=== PATIENT | female | born 1980 | race Caucasian/White ===

== ENCOUNTER 2018-10-23 07:40 | Day surgery (SDC) | payer BC ==
[~2018-10-23 07:40] MED LIST: Bupivacaine 0.25% 10 ML SDV ONE; Methylene Blue 50 MG/10 ML Ampule ONE
[2018-10-23] MEDS ORDERED: Midazolam 1 MG/ML 2 ML SDV ONE (07:58)
[2018-10-23] MEDS ORDERED: fentaNYL 100 MCG/2 ML SDV ONE (07:58)
[2018-10-23] MEDS ORDERED: Propofol 200 MG/20 ML SDV ONE (07:59)
[2018-10-23] MEDS ORDERED: Lidocaine 2% 5 ML SDV ONE (07:59)
[2018-10-23] MEDS ORDERED: Rocuronium 100 MG/10 ML Syringe ONE (07:59)
[2018-10-23] MEDS ORDERED: Dexamethasone 4 MG/ML 5 ML MDV ONE (08:00)
[2018-10-23] MEDS ORDERED: Glycopyrrolate 0.2 MG/ML SDV ONE ×2 (08:00)
[2018-10-23] MEDS ORDERED: Ondansetron 4 MG/2 ML SDV ONE ×2 (08:00)
[2018-10-23] MEDS: Lactated Ringers 1,000 ML IV SCH ×2 (08:20→18:20)
[2018-10-23] MEDS ORDERED: Scopolamine 1.5 MG Transdermal Patch TRDERM PRN (08:32)
--- NOTE | 2018-10-23 08:32 | PCM.PREANE ---
Preanesthetic Assessment - Anesthesia/Transfusion/Family Hx Anesthesia History: Prior Anesthesia Without Reaction Family History of Anesthesia Reaction: No Transfusion History: No Prior Transfusion(s) - Review of Systems General: No Symptoms Pulmonary: No Symptoms Cardiovascular: No Symptoms Gastrointestinal: No Symptoms Neurological: No Symptoms Other: Reports: None - Physical Assessment NPO Status Date: 10/22/18 Vital Signs: Last Vital Signs Temp 97.5 F 10/23/18 08:20 Pulse 96 10/23/18 08:20 Resp 16 10/23/18 08:20 BP 126/92 H 10/23/18 08:20 Pulse Ox 99 10/23/18 08:20 Height: 5 ft 1 in Weight: 92.079 kg ASA Class: 1 Mental Status: Alert & Oriented x3 Airway Class: Mallampati = 2 Dentition: Reports: Implants (lateral maxillary incisors bilat) - Lab Values: Laboratory Last Values WBC 8.37 K/uL (4.0-11.0) 10/23/18 08:05 RBC 4.46 M/uL (4.30-5.90) 10/23/18 08:05 Hgb 12.3 g/dL (12.0-16.0) 10/23/18 08:05 Hct 38.2 % (36.0-46.0) 10/23/18 08:05 MCV 85.7 fL (80.0-98.0) 10/23/18 08:05 MCH 27.6 pg (27.0-32.0) 10/23/18 08:05 MCHC 32.2 g/dL (31.0-37.0) 10/23/18 08:05 RDW Std Deviation 42.9 fl (28.0-62.0) 10/23/18 08:05 RDW Coeff of Ilene 14 % (11.0-15.0) 10/23/18 08:05 Plt Count 495 K/uL (150-400) H 10/23/18 08:05 MPV 10.90 fL (7.40-12.00) 10/23/18 08:05 Nucleated RBC % 0.0 /100WBC 10/23/18 08:05 Nucleated RBCs # 0 K/uL 10/23/18 08:05 - Allergies Allergies/Adverse Reactions: Allergies Allergy/AdvReac Type Severity Reaction Status Date / Time No Known Allergies Allergy Verified 10/17/18 13:00 - Blood Blood Available: No - Anesthesia Plan Pre-Op Medication Ordered: None - Acknowledgements Anesthesia Type Planned: General Anesthesia Pt an Appropriate Candidate for the Planned Anesthesia: Yes Alternatives and Risks of Anesthesia Discussed w Pt/Guardian: Yes Pt/Guardian Understands and Agrees with Anesthesia Plan: Yes PreAnesthesia Questionnaire HEENT History: Reports: None Cardiovascular History: Reports: None Respiratory History: Reports: None Gastrointestinal History: Reports: GERD Genitourinary History: Reports: None CUT OUT STITCHER History: Reports: Dysfunctional Uterine Bleeding, Musculoskeletal History: Reports: Arthritis, Back Pain, Chronic Other Musculoskeletal History: 3 herniated discs Neurological History: Reports: Migraines Psychiatric History: Reports: None Endocrine/Metabolic History: Reports: Obesity/BMI 30+ Hematologic History: Reports: None Immunologic History: Reports: None Oncologic (Cancer) History: Reports: None Dermatologic History: Reports: None - Past Surgical History Head Surgeries/Procedures: Reports: None HEENT Surgical History: Reports: Adenoidectomy, Naso-Sinus Surgery, Tonsillectomy Cardiovascular Surgical History: Reports: None Respiratory Surgical History: Reports: None GI Surgical History: Reports: None Female Surgical History: Reports: Section Endocrine Surgical History: Reports: Other (See Below) Other Endocrine Surgeries/Procedures: excision of left parotid gland Neurological Surgical History: Reports: None Musculoskeletal Surgical History: Reports: None Dermatological Surgical History: Reports: None - SUBSTANCE USE Smoking Status *Q: Never Smoker Recreational Drug Use History: No - HOME MEDS Home Medications: Home Meds Calcium Carbonate [Tums] 1 tab.chew CHEW ASDIRECTED PRN 10/17/18 [History] Ergocalciferol (Vitamin D2) [Vitamin D2] 50,000 units PO WEEKLY 10/17/18 [ History] Ibuprofen 2 - 3 tab PO ASDIRECTED PRN 10/17/18 [History] Multivitamin [Multivitamins] 1 tab PO DAILY 10/17/18 [History] Norethindrone Acetate [Aygestin] 5 mg PO DAILY 10/17/18 [History] - CURRENT (IN HOUSE) MEDS Current Meds: Current Medications Lactated Ringer's (Ringers, Lactated) 1,000 mls @ 125 mls/hr IV ASDIRECTED RAUL Discontinued Medications Bupivacaine HCl (Sensorcaine-Mpf 0.25%) Confirm Administered Dose 20 ml .ROUTE .[facility]-MED ONE Stop: 10/23/18 07:27 Dexamethasone (Dexamethasone) Confirm Administered Dose 20 mg .ROUTE .[facility] ONE Stop: 10/23/18 08:01 Fentanyl (Sublimaze) Confirm Administered Dose 100 mcg .ROUTE .[facility]-MED ONE Stop: 10/23/18 07:59 Glycopyrrolate (Robinul) Confirm Administered Dose 0.2 mg .ROUTE .[facility] ONE Stop: 10/23/18 08:01 Glycopyrrolate (Robinul) Confirm Administered Dose 0.2 mg .ROUTE .[facility] ONE Stop: 10/23/18 08:01 Lidocaine (Xylocaine-Mpf 2%) Confirm Administered Dose 5 ml .ROUTE .[facility] ONE Stop: 10/23/18 08:00 Methylene Blue (Provayblue) Confirm Administered Dose 50 mg .ROUTE .[facility] ONE Stop: 10/23/18 07:27 Midazolam HCl (Versed 1 Mg/Ml) Confirm Administered Dose 2 mg .ROUTE .[facility] ONE Stop: 10/23/18 07:59 Ondansetron HCl (Zofran) Confirm Administered Dose 4 mg .ROUTE [facility] ONE Stop: 10/23/18 08:01 Ondansetron HCl (Zofran) Confirm Administered Dose 4 mg .ROUTE .[facility]-[facility] ONE Stop: 10/23/18 08:01 Propofol (Diprivan 20 Ml) Confirm Administered Dose 200 mg .ROUTE .[facility] ONE Stop: 10/23/18 08:00 Rocuronium [place] (Zemuron) Confirm Administered Dose 100 mg .ROUTE .[facility] ONE Stop: 10/23/18 08:00
[2018-10-23 08:34] LABS: BLOOD UREA NITROGEN,BUN 12 mg/dL (7.0-18.0); CARBON DIOXIDE,CO2 25.3 mmol/L (21.0-32.0); CHLORIDE,CL 105 mmol/L (98-107); GLUCOSE RANDOM 105 mg/dL (74-106); POTASSIUM,K 3.7 mmol/L (3.5-5.1); SODIUM,NA 142 mmol/L (136-145)
[2018-10-23] MEDS ORDERED: Scopolamine 1.5 MG Transdermal Patch ONE (08:35)
[2018-10-23] MEDS ORDERED: ceFAZolin/Dextrose,Iso-Osmotic 2 GM/50 ML Duplex Bag IV ONE (08:49)
[2018-10-23] MEDS ORDERED: Phenylephrine 1% 10 MG/ML SDV ONE (09:11)
[2018-10-23] MEDS ORDERED: HYDROmorphone 2 MG/ML Syringe ONE (09:50)
[2018-10-23] MEDS ORDERED: Fluorescein 5 ML Vial ONE (10:00)
[2018-10-23] MEDS ORDERED: Sugammadex Sodium 200 MG/2 ML VIAL ONE (10:02)
[2018-10-23] MEDS ORDERED: Furosemide 40 MG/4 ML VIAL ONE (10:07)
[2018-10-23] MEDS ORDERED: Ketorolac 30 MG/ML SDV ONE (10:33)
[2018-10-23] MEDS ORDERED: Ondansetron 4 MG/2 ML SDV IVPUSH PRN (10:45)
[2018-10-23] MEDS ORDERED: Promethazine 25 MG/ML SDV IM PRN (10:45)
[2018-10-23] MEDS ORDERED: Belladonna Alkaloids/Opium 16.2-30 MG Supp RECTAL PRN (10:45)
[2018-10-23] MEDS ORDERED: Ketorolac 30 MG/ML SDV IVPUSH ONE (10:45)
[2018-10-23] MEDS ORDERED: Morphine 4 MG/ML Syringe IVPUSH PRN (10:45)
--- NOTE | 2018-10-23 10:58 | PCM.OPNOTE ---
- General Post-Op/Procedure Note Date of Surgery/Procedure: 10/23/18 Operative Procedure(s): LAVH/Bilateral salpingectomy/cystoscopy Findings: 8-10 week uterus, normal appearing ovaris, bilateral patent ureters Pre Op Diagnosis: Menorrhagia Post-Op Diagnosis: Same Anesthesia Technique: General ET Tube Primary Surgeon: Virginia Mariee Tool And Die Inspector: Alfredo Rodriguez Tool And Die Inspector: Jr Culver Fluid Replacement, Intraop: 3,000 EBL in mLs: 150 Complications: none known Condition: Stable Free Text/Narrative:: [id number] Dictation
[2018-10-23] MEDS ORDERED: Albuterol/Ipratropium 3.0-0.5 MG/3 ML Neb Soln ONE (11:17)
[2018-10-23] MEDS ORDERED: Meperidine PF 25 MG/ML Syringe IVPUSH ONE (11:26)
[2018-10-23] MEDS ORDERED: Midazolam 1 MG/ML 2 ML SDV IVPUSH ONE (11:27)
--- NOTE | 2018-10-23 12:52 | OR ---
SURGEON: Virginia Mariee M.D. DATE OF PROCEDURE: 10/23/2018 PREOPERATIVE DIAGNOSIS: Menorrhagia. POSTOPERATIVE DIAGNOSIS: Menorrhagia. PROCEDURES: Laparoscopic-assisted vaginal hysterectomy, bilateral salpingectomy, cystoscopy. PRIMARY SURGEON: Virginia Mariee MD. ASSISTANTS: Alfredo Rodriguez MD. Second assist: Paula Culver MS4. ANESTHESIA: General endotracheal anesthesia. ESTIMATED BLOOD LOSS: 150 mL. FLUIDS: 3000 mL of crystalloid. COMPLICATIONS: None known. FINDINGS: Approximately 8- to 10-week size uterus. Normal-appearing ovaries. Bilateral patent ureters. DISPOSITION: The patient to PACU, stable. PROCEDURE DETAILS: Ijeoma is a 38-year-old female who has ongoing difficulties with menorrhagia. At this time, she would like to proceed with definitive surgical intervention in the form of hysterectomy. Endometrial biopsy is benign. Risks of procedure have been discussed with proper consent obtained. The patient was taken to the operating room where she underwent general endotracheal anesthesia, was placed in modified dorsal lithotomy position, and was prepped and draped in usual sterile fashion. SCDs to lower extremities. Moore to gravity. Received Ancef prophylactically. Time-out was performed. Weighted speculum was introduced in the vagina. Cervix was grasped with a single-tooth tenaculum. Uterine HUMI manipulator was gently introduced. The balloon was insufflated. Vaginal instruments removed other than the HUMI manipulator. Gloves changed. Attention turned abdominally. Infraumbilically, 0.25% Marcaine was introduced. A 5 mm skin incision was made midline sagittal. Anterior abdominal wall tented upward. Veress needle was introduced. Saline hanging drop test was performed. Pneumoperitoneum was achieved. The Veress needle removed. Laparoscopic trocar was introduced as well as the laparoscope. New peritoneal contents were identified. Uterus appeared mobile. There were some uterovesical adhesions noted from previous deliveries. Left and right lower quadrant trocars were placed under direct visualization after prepping the regions with 0.25% Marcaine creating 5 mm skin incisions. Once trocars were introduced, I was able to visualize ureters on either side, seen to be peristalsing well away from operative field. The right fallopian tube was now isolated and salpingectomy was performed up to level of the cornua, and then using LigaSure, the tubo-ovarian utero pedicle was able to be secured, cauterized, and transected along the left side followed by the upper aspect of the broad ligament, the medial portion of the broad ligament including the round ligament, base of the broad ligament, upper portion of the cardinal ligament, down to the level of the uterosacral ligament. Anterior peritoneum was able to be tented upward and dissected along this plane in order to mobilize the bladder away from the lower uterine segment, cervix. With hydrodissection, the bladder was able to be mobilized after lysing adhesions. A similar aspect was performed on the patient's right side. Fallopian tube was isolated, salpingectomy was performed to the level of the cornua. The uterotubal ovarian complex was now able to be secured with LigaSure, cauterized, transected. Upper portion of broad ligament, medial portion of the broad ligament including round ligament, base of the broad ligament, upper level of the cardinal ligament, base of the cardinal ligament to the level of the uterosacral ligament. The bladder was felt to be adequately mobilized away from lower segment, cervix. Therefore, attention was now turned vaginally. The ovaries do appear normal. Pneumoperitoneum was released. Laparoscopic instruments were removed. Attention turned vaginally. A weighted speculum was introduced, anterior Jbphh. Cervix was grasped with Sabine clamp, tented downward, circumscribed with Bovie cautery anterior and posteriorly. The overlying mucosa was dissected away from underlying peritoneum. Posterior peritoneum was tented downward and entered sharply. Longer weighted speculum replaced the shorter. Peritoneal contents were identified. Anteriorly, I was able to enter the anterior cul-de-sac sharply and bluntly. Alex was now utilized to mobilize bladder away from the operative field. Chris clamps were utilized to secure the uterosacral ligament on either side, transected, and suture ligated with 2-0 Vicryl. Further pedicle on either side was able to be secured, transected, and suture ligated. The uterus and tubes were now able to be removed to be handed off to design technology professor to be sent to pathology. The remaining pedicles were closely inspected. Area of oozing along the uterosacral ligament was able to be plicated to the vaginal apex, helping to secure hemostasis. Upper pedicles appeared hemostatic. The posterior cuff was slightly oozy, gently cauterized, and will be incorporated with the cuff closure. Attention was now turned to closing vaginal cuff. Using 0 Vicryl, I was able to close the cuff in continuous running locked fashion. The cuff was inspected, found to be hemostatic. The balloon was deflated on the Moore catheter. The catheter was removed. Cystoscope was introduced. Using normal saline as distention media, I was able to visualize dome of bladder followed by the trigone. IV fluorescein was introduced with Lasix. The left ureteral orifice followed by the right ureteral orifice was able to be visualized and fluorescein dyed urine was seen streaming from them, helping to ensure ureteral patency. The bladder was now drained. Cystoscope was removed. A Moore catheter was replaced. Vaginal cuff once again inspected, found to be hemostatic. Attention was now returned abdominally after changing gloves. Pneumoperitoneum was once again achieved. Laparoscope was introduced. The pelvis was closely inspected, copiously irrigated, suction dried. Area of slight oozing along the left uterosacral pedicle was able to be cauterized with LigaSure as well as a slight serosal oozing along the bladder peritoneum. Thereafter, hemostasis appeared evident. Relief pressure decreased to 5. Hemostasis once again appeared evident. The pelvis was once again irrigated, suction dried. Pneumoperitoneum was released. The laparoscopic instruments were removed other than the laparoscope. The right and left lower quadrant trocars were removed under direct visualization followed by laparoscope, infraumbilical trocar after releasing as much of the pneumoperitoneum as possible. The infraumbilical trocar was removed. The skin edges reapproximated using 3-0 Monocryl in a subcuticular fashion. Sponge, instrument, and needle count was correct x2. The patient has tolerated the procedure well overall. She will go to PACU in stable condition, specimen to pathology. MICHELL / DEREJE /[id number] MARISA
[2018-10-23] MEDS: Acetaminophen/oxyCODONE 325-5 MG Tab PO PRN ×2 (14:24→19:38)
--- NOTE | 2018-10-23 14:41 | PCM48HPAN ---
Post Anesthesia Note - EVALUATION WITHIN 48HRS OF ANESTHETIC Vital Signs in Normal Range: Yes Patient Participated in Evaluation: Yes Respiratory Function Stable: Yes Airway Patent: Yes Cardiovascular Function Stable: Yes Hydration Status Stable: Yes Pain Control Satisfactory: Yes Nausea and Vomiting Control Satisfactory: Yes Mental Status Recovered: Yes Vital Signs: Last Vital Signs Temp 97 F 10/23/18 12:40 Pulse 79 10/23/18 13:10 Resp 16 10/23/18 13:10 BP 101/57 L 10/23/18 13:10 Pulse Ox 97 10/23/18 13:10
--- NOTE | 2018-10-23 14:41 | PCM.POSTAN ---
POST ANESTHESIA ASSESSMENT - MENTAL STATUS Mental Status: Alert, Oriented - VITAL SIGNS Vital Signs: Last Vital Signs Temp 97 F 10/23/18 12:40 Pulse 79 10/23/18 13:10 Resp 16 10/23/18 13:10 BP 101/57 L 10/23/18 13:10 Pulse Ox 97 10/23/18 13:10 - RESPIRATORY Respiratory Status: Respiratory Rate WNL, Airway Patent, O2 Saturation Stable - CARDIOVASCULAR CV Status: Pulse Rate WNL, Blood Pressure Stable - GASTROINTESTINAL GI Status: No Symptoms - POST OP HYDRATION Hydration Status: Adequate & Stable
--- NOTE | 2018-10-23 16:47 | PCM.SN ---
- Free Text/Narrative Note: Patient is up and walking halls. Denies nausea. Pain is well controlled. Explained intraoperative findings and procedure. Continue postoperative cares, may have mcginnis out tonight if patient wishes. VS are stable and urine output is adequate.
[2018-10-23] MEDS ORDERED: Ketorolac 30 MG/ML SDV IVPUSH PRN (17:00)
[2018-10-24] MEDS: Acetaminophen/oxyCODONE 325-5 MG Tab PO PRN ×2 (01:14→09:16)
[2018-10-24 06:32] LABS: BLOOD UREA NITROGEN,BUN 8 mg/dL (7.0-18.0); CARBON DIOXIDE,CO2 25.9 mmol/L (21.0-32.0); CHLORIDE,CL 107 mmol/L (98-107); GLUCOSE RANDOM 102 mg/dL (74-106); SODIUM,NA 142 mmol/L (136-145)
--- NOTE | 2018-10-24 08:57 | PCM.SURGPN ---
- General Info Date of Service: 10/24/18 POD#: 1 Functional Status: Reports: Pain Controlled, Tolerating Diet, Ambulating, Urinating - Review of Systems General: Denies: Fever, Weakness, Fatigue Pulmonary: Denies: Shortness of Breath Cardiovascular: Denies: Chest Pain, Palpitations, Lightheadedness Gastrointestinal: Denies: Abdominal Pain, Nausea, Vomiting Genitourinary: Denies: Flank Pain Musculoskeletal: Reports: No Symptoms Skin: Reports: No Symptoms Neurological: Reports: No Symptoms Psychiatric: Reports: No Symptoms - Patient Data Vitals - Most Recent: Last Vital Signs Temp 36.3 C 10/24/18 07:40 Pulse 65 10/24/18 07:40 Resp 16 10/24/18 07:40 BP 99/49 L 10/24/18 07:40 Pulse Ox 97 10/24/18 07:40 Weight - Most Recent: 92.079 kg I&O - Last 24 Hours: Intake & Output 10/23/18 10/24/18 10/24/18 22:59 06:59 14:59 Intake Total 922 2750 Output Total 750 4850 Balance 172 -2100 Lab Results Last 24 Hrs: Laboratory Results - last 24 hr 10/23/18 10/24/18 10/24/18 Range/Units 08:05 06:01 06:01 WBC 12.19 H (4.0-11.0) K/uL RBC 3.57 L (4.30-5.90) M/uL Hgb 9.7 L (12.0-16.0) g/dL Hct 30.7 L (36.0-46.0) % MCV 86.0 (80.0-98.0) fL MCH 27.2 (27.0-32.0) pg MCHC 31.6 (31.0-37.0) g/dL RDW Std Deviation 43.4 (28.0-62.0) fl RDW Coeff of Ilene 14 (11.0-15.0) % Plt Count 372 (150-400) K/uL MPV 10.60 (7.40-12.00) fL Neut % (Auto) 75.7 (48.0-80.0) % Lymph % (Auto) 17.1 (16.0-40.0) % Wake % (Auto) 7.2 (0.0-15.0) % Eos % (Auto) 0.0 (0.0-7.0) % Baso % (Auto) 0.0 (0.0-1.5) % Neut # (Auto) 9.2 H (1.4-5.7) K/uL Lymph # (Auto) 2.1 (0.6-2.4) K/uL Wake # (Auto) 0.9 H (0.0-0.8) K/uL Eos # (Auto) 0.0 (0.0-0.7) K/uL Baso # (Auto) 0.0 (0.0-0.1) K/uL Nucleated RBC % 0.0 /100WBC Nucleated RBCs # 0 K/uL Sodium 142 (136-145) mmol/L Potassium 4.0 (3.5-5.1) mmol/L Chloride 107 (98-107) mmol/L Carbon Dioxide 25.9 (21.0-32.0) mmol/L BUN 8 (7.0-18.0) mg/dL Creatinine 0.8 (0.6-1.0) mg/dL Est Cr Clr Drug Dosing 70.54 mL/min Estimated GFR (MDRD) > 60.0 ml/min Glucose 102 (74-106) mg/dL Calcium 7.9 L (8.5-10.1) mg/dL Blood Type A POSITIVE Antibody Screen NEGATIVE Med Orders - Current: Current Medications Belladonna Alkaloids/Opium (B & O Supprettes No. 15a) 1 supp RECTAL Q4H PRN PRN Reason: Pain Lactated Ringer's (Ringers, Lactated) 1,000 mls @ 125 mls/hr IV ASDIRECTED [facility] Last Admin: 10/23/18 18:20 Dose: 125 mls/hr Ketorolac Tromethamine (Toradol) 30 mg IVPUSH Q6H PRN PRN Reason: Pain (severe 7-10) Last Admin: 10/23/18 18:05 Dose: 30 mg Morphine Sulfate (Morphine) 4 mg IVPUSH Q2H PRN PRN Reason: Pain (severe 7-10) Ondansetron HCl (Zofran) 4 mg IVPUSH Q6H PRN PRN Reason: Nausea/Vomiting Oxycodone/Acetaminophen (Percocet 325-5 Mg) 1 tab PO Q4H PRN PRN Reason: Pain (moderate 4-6) Last Admin: 10/24/18 01:14 Dose: 1 tab Oxycodone/Acetaminophen (Percocet 325-5 Mg) 2 tab PO Q4H PRN PRN Reason: Pain (moderate 4-6) Last Admin: 10/23/18 19:38 Dose: 2 tab Promethazine HCl (Phenergan) 25 mg IM Q6H PRN PRN Reason: Nausea/Vomiting Scopolamine (Transderm-Scop) 1.5 mg TRDERM Q72H PRN PRN Reason: Nausea/Vomiting Last Admin: 10/23/18 08:30 Dose: 1.5 mg Discontinued Medications Albuterol/Ipratropium (Duoneb 3.0-0.5 Mg/3 Ml) Confirm Administered Dose 3 ml .ROUTE .STK-MED ONE Stop: 10/23/18 11:18 Last Admin: 10/23/18 11:22 Dose: 3 ml Bupivacaine HCl (Sensorcaine-Mpf 0.25%) Confirm Administered Dose 20 ml .ROUTE .STK-MED ONE Stop: 10/23/18 07:27 Cefazolin Sodium/Dextrose (Ancef) Confirm Administered Dose 2 gm IV .STK-MED ONE Stop: 10/23/18 08:50 Dexamethasone (Dexamethasone) Confirm Administered Dose 20 mg .ROUTE .STK-MED ONE Stop: 10/23/18 08:01 Fentanyl (Sublimaze) Confirm Administered Dose 100 mcg .ROUTE .STK-MED ONE Stop: 10/23/18 07:59 Fluorescein Sodium (Ak-Fluor) Confirm Administered Dose 5 ml .ROUTE .STK-MED ONE Stop: 10/23/18 10:01 Furosemide (Lasix) Confirm Administered Dose 40 mg .ROUTE .STK-MED ONE Stop: 10/23/18 10:08 Glycopyrrolate (Robinul) Confirm Administered Dose 0.2 mg .ROUTE .STK-MED ONE Stop: 10/23/18 08:01 Glycopyrrolate (Robinul) Confirm Administered Dose 0.2 mg .ROUTE .STK-MED ONE Stop: 10/23/18 08:01 Hydromorphone HCl (Dilaudid) Confirm Administered Dose 2 mg .ROUTE .STK-MED ONE Stop: 10/23/18 09:51 Ketorolac Tromethamine (Toradol) Confirm Administered Dose 30 [address]- MED ONE Stop: 10/23/18 10:34 Ketorolac Tromethamine (Toradol) 30 mg IVPUSH ONETIME ONE Stop: 10/23/18 10:46 Last Admin: 10/23/18 14:23 Dose: Not Given Lidocaine (Xylocaine-Mpf 2%) Confirm Administered Dose 5 ml .[address] .[facility] ONE Stop: 10/23/18 08:00 Meperidine HCl (Demerol) 25 mg IVPUSH ONETIME ONE Stop: 10/23/18 11:27 Last Admin: 10/23/18 11:32 Dose: 25 mg Methylene Blue (Provayblue) Confirm Administered Dose 50 mg .[address] .[facility] ONE Stop: 10/23/18 07:27 Midazolam HCl (Versed 1 Mg/Ml) Confirm Administered Dose 2 mg [address] .[facility] ONE Stop: 10/23/18 07:59 Midazolam HCl (Versed 1 Mg/Ml) 2 mg IVPUSH ONETIME ONE Stop: 10/23/18 11:28 Last Admin: 10/23/18 11:46 Dose: 1 mg Ondansetron HCl (Zofran) Confirm Administered Dose 4 mg .[address]TE .[facility] ONE Stop: 10/23/18 08:01 Ondansetron HCl (Zofran) Confirm Administered Dose 4 mg .[address]TE .[facility] ONE Stop: 10/23/18 08:01 Phenylephrine HCl (Ced-Synephrine) Confirm Administered Dose 10 mg .[address]TE .[facility]- MED ONE Stop: 10/23/18 09:12 Propofol (Diprivan 20 Ml) Confirm Administered Dose 200 mg .[address] .[facility] ONE Stop: 10/23/18 08:00 Rocuronium [place] (Zemuron) Confirm Administered Dose 100 mg .[address] .[facility] ONE Stop: 10/23/18 08:00 Scopolamine (Transderm-Scop) Confirm Administered Dose 1.[address] ONE Stop: 10/23/18 08:36 Last Admin: 10/23/18 14:23 Dose: Not Given Sugammadex Sodium (Bridion) Confirm Administered Dose 200 mg .[address] .[facility]-MED ONE Stop: 10/23/18 10:03 - Exam Wound/Incisions: Healing Well, No Drainage. No: Erythema General: Alert, Oriented Lungs: Normal Respiratory Effort Cardiovascular: Regular Rate, Regular Rhythm GI/Abdominal Exam: Normal Bowel Sounds, Soft Extremities: Pedal Edema (trace). No: Reanna's Sign Skin: Warm, Dry, Intact Neurological: No New Focal Deficit Psy/Mental Status: Alert, Normal Affect, Normal Mood - Problem List & Annotations (1) Menorrhagia SNOMED Code(s): 193172701 Code(s): N92.0 - EXCESSIVE AND FREQUENT MENSTRUATION WITH REGULAR CYCLE Status: Acute Current Visit: Yes - Problem List Review Problem List Initiated/Reviewed/Updated: Yes - My Orders Last 24 Hours: Active Orders 24 hr Category Date Time Status Patient Status [ADT] Routine ADT 10/23/18 10:45 Active Antiembolic Devices [RC] PER UNIT ROUTINE Care 10/23/18 10:45 Active Communication Order [RC] PRN Care 10/23/18 16:20 Active May Shower [RC] ASDIRECTED Care 10/23/18 10:45 Active Notify Provider Intake and Out [RC] ASDIRECTED Care 10/23/18 10:45 Active Notify Provider Vital Signs [RC] ASDIRECTED Care 10/23/18 10:45 Active Oxygen Therapy [RC] ASDIRECTED Care 10/23/18 10:45 Active RT Incentive Spirometry [RC] Q2HWA Care 10/23/18 10:45 Active Ready for Discharge [RC] PER UNIT ROUTINE Care 10/24/18 08:54 Ordered Up ad Kandice [RC] PER UNIT ROUTINE Care 10/23/18 10:45 Active Regular Diet [DIET] Diet 10/23/18 Lunch Active Acetaminophen/oxyCODONE [Percocet 325-5 MG] Med 10/23/18 10:45 Active 1 tab PO Q4H PRN Acetaminophen/oxyCODONE [Percocet 325-5 MG] Med 10/23/18 10:45 Active 2 tab PO Q4H PRN Belladonna/Opium [B & O Supprettes No. 15A] Med 10/23/18 10:45 Active 1 supp RECTAL Q4H PRN Ketorolac [Toradol] Med 10/23/18 17:00 Active 30 mg IVPUSH Q6H PRN Morphine Med 10/23/18 10:45 Active 4 mg IVPUSH Q2H PRN Ondansetron [Zofran] Med 10/23/18 10:45 Active 4 mg IVPUSH Q6H PRN Promethazine [Phenergan] Med 10/23/18 10:45 Active 25 mg IM Q6H PRN Scopolamine [Transderm-Scop] Med 10/23/18 08:32 Active 1.5 mg TRDERM Q72H PRN Heat Therapy [OM.PC] Routine Oth 10/23/18 10:47 Ordered Perineal Care [OM.PC] Per Unit Routine Oth 10/23/18 10:46 Ordered Peripheral IV Discontinue [OM.PC] Routine Oth 10/23/18 10:45 Ordered Sequential Compression Device [OM.PC] Per Unit Routine Oth 10/23/18 10:45 Ordered Resuscitation Status Routine Resus Stat 10/23/18 10:45 Ordered Medication Orders Belladonna Alkaloids/Opium (B & O Supprettes No. 15a) 1 supp RECTAL Q4H PRN PRN Reason: Pain Lactated Ringer's (Ringers, Lactated) 1,000 mls @ 125 mls/hr IV ASDIRECTED RAUL Last Admin: 10/23/18 18:20 Dose: 125 mls/hr Infusion: 10/23/18 16:20 Dose: 125 mls/hr Admin: 10/23/18 08:20 Dose: 125 mls/hr Ketorolac Tromethamine (Toradol) 30 mg IVPUSH Q6H PRN PRN Reason: Pain (severe 7-10) Last Admin: 10/23/18 18:05 Dose: 30 mg Morphine Sulfate (Morphine) 4 mg IVPUSH Q2H PRN PRN Reason: Pain (severe 7-10) Ondansetron HCl (Zofran) 4 mg IVPUSH Q6H PRN PRN Reason: Nausea/Vomiting Oxycodone/Acetaminophen (Percocet 325-5 Mg) 1 tab PO Q4H PRN PRN Reason: Pain (moderate 4-6) Last Admin: 10/24/18 01:14 Dose: 1 tab Admin: 10/23/18 14:24 Dose: 1 tab Oxycodone/Acetaminophen (Percocet 325-5 Mg) 2 tab PO Q4H PRN PRN Reason: Pain (moderate 4-6) Last Admin: 10/23/18 19:38 Dose: 2 tab Promethazine HCl (Phenergan) 25 mg IM Q6H PRN PRN Reason: Nausea/Vomiting Scopolamine (Transderm-Scop) 1.5 mg TRDERM Q72H PRN PRN Reason: Nausea/Vomiting Last Admin: 10/23/18 08:30 Dose: 1.5 mg - Assessment Assessment (Free Text/Narrative):: POD 1 status post LAVH/bilateral salpingectomy/cystoscopy - Plan Plan (Free Text/Narrative):: VS are stable, labs are reassuring. Patient feels ready to go home. Discharge instructions reviewed. Follow up at [facility] 2 and 6 weeks. Discharge to home today.
== END 2018-10-24 11:20 | disposition home or self-care (01) ==
LOC: MW.SDS 07:40 → MW.MS 12:33 → MW.SDS 10-24 11:20
PROVIDERS: ATTEND Obstetrics & Gynecology
DX: N85.00 Endometrial hyperplasia, unspecified (principal); N76.0 Acute vaginitis; Z79.899 Other long term (current) drug therapy
CPT/HCPCS: 36415; 58552; 80048; 84703; 85025; 85027; 86850; 86900; 86901; 88307; 94640; A9270; J0690; J1100; J1170; J1885; J1940; J2001; J2175; J2250; J2370; J2405; J2704; J3010; J3490; J7120; J7620-GY

== ENCOUNTER 2023-10-17 11:22 | Day surgery (SDC) | payer BC ==
[~2023-10-17 11:22] MED LIST changes: -Bupivacaine 0.25% 10 ML SDV ONE; -Methylene Blue 50 MG/10 ML Ampule ONE; +Sodium Chloride 0.9% 10 ML Syringe FLUSH PRN; +Sodium Chloride 0.9% 2.5 ML Syringe FLUSH PRN; +Sodium Chloride 0.9% 20 ML SDV IV PRN
[2023-10-17] MEDS: Lactated Ringers 1,000 ML IV SCH (11:59)
[2023-10-17] MEDS ORDERED: propofoL 50 ML ONE (12:28)
== END 2023-10-17 13:30 | disposition home or self-care (01) ==
LOC: MW.SDS 11:22
PROVIDERS: ATTEND Surgery
DX: K57.30 Diverticulosis of large intestine without perforation or abscess without bleeding (principal); K52.9 Noninfective gastroenteritis and colitis, unspecified; K21.9 Gastro-esophageal reflux disease without esophagitis; Z80.0 Family history of malignant neoplasm of digestive organs
CPT/HCPCS: 45380; J2704; J7120; 00811